=== PATIENT | male | born 1985 | race African-American/Black ===

== ENCOUNTER 2016-10-25 21:44 | Emergency (ER) | payer SELFPAY ==
[~2016-10-25] VITALS: Ht 180.3 cm; Wt 96.7 kg
[~2016-10-25 21:44] MED LIST: 12 HOUR DECONG120 M1 PO; AZITHROMYCIN500 M1 PO; BACTRIM,SEPT1 TABLET PO; DEPAKOTE500 MG PO; IBUPROFEN800 MG PO; KEFLEX500 MG PO; LORATADINE10 M2 PO; NAPROSYN500 MG PO; NORCO 5/3251 TABLET PO; PERCOCET 5/31 TABLET PO; TESSALON PERLE100 MG PO; TRAMADOL HCL50 MG PO; TYLENOL WITH C1 EACH PO; VICODIN 5-3001 EACH PO
[2016-10-25] MEDS ORDERED: PEN-VEE K,VEET500 MG PO (22:13)
[2016-10-25] MEDS ORDERED: NORCO 5/3251 TABLET PO (22:13)
[2016-10-25 22:24] VITALS: BP 136/98
== END 2016-10-25 22:25 | disposition home or self-care (01) ==
LOC: EME 21:44
DX: K04.7 Periapical abscess without sinus (principal); L03.211 Cellulitis of face; K03.81 Cracked tooth; F17.200 Nicotine dependence, unspecified, uncomplicated
CPT/HCPCS: 99281; 99284

== ENCOUNTER 2016-10-27 20:19 | Inpatient (IN) | payer OTHER ==
[~2016-10-27] VITALS: Ht 180.3 cm; Wt 94.9 kg
[~2016-10-27 20:19] MED LIST changes: +PEN-VEE K,VEET500 MG PO
[2016-10-27 21:49] LABS: HEMATOCRIT 40.7 % (38.0-50.0); MCHC 34.4 G/DL (30.0-36.0); MCV 87.3 FL (86-99); MEAN PLAT.VOLUME 10.3 uM^3 (9.0-12.4); PLATELET COUNT 210 K/uL (156-360); RBC DIS.WIDTH-CV 14.2 % (11.8-14.6); RBC DIS.WIDTH-SD 44.8 % (39-53); RED BLOOD COUNT 4.66 M/uL (4.00-5.50); WHITE BLOOD COUNT 18.2 K/uL (4.1-10.2)
[2016-10-27 21:54] LABS: BASOPHIL COUNT 0.1 K/uL (0-0.1); EOSINOPHIL (%) 0.5 % (0-5); EOSINOPHIL COUNT 0.1 K/uL (0-0.3); IMMATURE GRANULOCYTE (%) 0.3 % (0.0-0.7); IMMATURE GRANULOCYTE COUNT 0.5 K/uL; LYMPHOCYTE COUNT 2.2 K/uL (1.0-2.8); MONOCYTE (%) 10.7 % (3-12); MONOCYTE COUNT 1.9 K/uL (0-0.8); NEUTROPHIL COUNT 13.8 K/uL (1.8-6.4)
[2016-10-27 21:57] LABS: CHLORIDE 105 mEq/L (99-109); POTASSIUM 3.7 mEq/L (3.7-5.4); SODIUM 139 mEq/L (136-147)
[2016-10-27 21:59] LABS: GLUCOSE 75 mg/dL (70-99)
[2016-10-27 22:01] LABS: ANION GAP 14 MEQ/L (2-14); TOTAL BILIRUBIN 0.7 mg/dL (0.0-1.0)
[2016-10-27 22:03] LABS: ALKALINE PHOSPHATASE 93 IU/L (3-129); GFR ESTIMATE (CALCULATED) > 59 mL/min/
[2016-10-27 22:04] LABS: UREA NITROGEN (BUN) 8 mg/dL (9-23)
[2016-10-28 03:30] VITALS: BP 130/87
[2016-10-28 03:55] VITALS: BP 130/87
[2016-10-28 04:59] LABS: HEMATOCRIT 38.9 % (38.0-50.0); MCH 29.9 PG (29.0-34.0); MCHC 33.9 G/DL (30.0-36.0); RBC DIS.WIDTH-CV 14.2 % (11.8-14.6); RBC DIS.WIDTH-SD 45.1 % (39-53); RED BLOOD COUNT 4.42 M/uL (4.00-5.50); WHITE BLOOD COUNT 14.4 K/uL (4.1-10.2)
[2016-10-28 06:59] LABS: MEAN PLAT.VOLUME ND uM^3 (9.0-12.4); PLATELET COUNT ND K/uL (156-360)
[2016-10-28 07:01] LABS: HEMATOLOGY COMMENT 1 SMEAR COMPATIBLE; USER ID TLW
[2016-10-28 07:47] VITALS: BP 129/68
[2016-10-28 11:01] VITALS: BP 127/66
[2016-10-28 11:33] LABS: BASOPHIL COUNT 0.1 K/uL (0-0.1); EOSINOPHIL (%) 0.9 % (0-5); EOSINOPHIL COUNT 0.1 K/uL (0-0.3); IMMATURE GRANULOCYTE (%) 0.5 % (0.0-0.7); IMMATURE GRANULOCYTE COUNT 0.7 K/uL; LYMPHOCYTE COUNT 3.1 K/uL (1.0-2.8); MONOCYTE (%) 11.6 % (3-12); MONOCYTE COUNT 1.7 K/uL (0-0.8); NEUTROPHIL (%) 65.3 % (45-76); NEUTROPHIL COUNT 9.4 K/uL (1.8-6.4)
[2016-10-28 15:19] VITALS: BP 126/84
[2016-10-28 19:56] VITALS: BP 125/58
[2016-10-29 00:25] VITALS: BP 115/69
[2016-10-29 07:19] LABS: ANION GAP 10 MEQ/L (2-14); CHLORIDE 103 MEQ/L (99-109); GFR ESTIMATE (CALCULATED) > 59 mL/min/; MAGNESIUM 2.1 mg/dl (1.3-2.7); POTASSIUM 3.8 MEQ/L (3.7-5.4); SAMPLE HEMOLYSIS CHECK 0; SAMPLE ICTERIC CHECK 0; SAMPLE LIPEMIA CHECK 0; SODIUM 139 MEQ/L (136-147); UREA NITROGEN (BUN) 11 mg/dL (9-23)
[2016-10-29 07:20] LABS: GLUCOSE 95 mg/dL (70-99)
[2016-10-29 07:24] LABS: EOSINOPHIL (%) 3.3 % (0-5); EOSINOPHIL COUNT 0.3 K/uL (0-0.3); HEMATOCRIT 38.5 % (38.0-50.0); IMMATURE GRANULOCYTE (%) 0.5 % (0.0-0.7); LYMPHOCYTE COUNT 1.2 K/uL (1.0-2.8); MCH 30.5 PG (29.0-34.0); MCHC 34.8 G/DL (30.0-36.0); MCV 87.7 FL (86-99); MEAN PLAT.VOLUME 10.6 uM^3 (9.0-12.4); MONOCYTE COUNT 0.6 K/uL (0-0.8); NEUTROPHIL (%) 72.3 % (45-76); NEUTROPHIL COUNT 5.4 K/uL (1.8-6.4); PLATELET COUNT 238 K/uL (156-360); RBC DIS.WIDTH-CV 14.2 % (11.8-14.6); RBC DIS.WIDTH-SD 45.4 % (39-53); RED BLOOD COUNT 4.39 M/uL (4.00-5.50)
[2016-10-29 07:25] LABS: WHITE BLOOD COUNT 7.5 K/uL (4.1-10.2)
[2016-10-29 07:48] VITALS: BP 119/71
[2016-10-29 15:08] VITALS: BP 132/72
[2016-10-30 00:52] VITALS: BP 113/77
[2016-10-30 06:25] LABS: HEMATOCRIT 38.9 % (38.0-50.0); MCHC 34.2 G/DL (30.0-36.0); MCV 87.8 FL (86-99); MEAN PLAT.VOLUME 10.6 uM^3 (9.0-12.4); PLATELET COUNT 252 K/uL (156-360); RBC DIS.WIDTH-CV 14.3 % (11.8-14.6); RBC DIS.WIDTH-SD 46.1 % (39-53); RED BLOOD COUNT 4.43 M/uL (4.00-5.50); WHITE BLOOD COUNT 5.5 K/uL (4.1-10.2)
[2016-10-30 06:50] LABS: ANION GAP 9 MEQ/L (2-14); CHLORIDE 104 MEQ/L (99-109); GFR ESTIMATE (CALCULATED) > 59 mL/min/; GLUCOSE 89 mg/dL (70-99); SAMPLE HEMOLYSIS CHECK 0; SAMPLE ICTERIC CHECK 0; SAMPLE LIPEMIA CHECK 0; SODIUM 142 MEQ/L (136-147); UREA NITROGEN (BUN) 15 mg/dL (9-23)
[2016-10-30 08:00] VITALS: BP 129/70
[2016-10-30] MEDS ORDERED: CLINDAMYCIN HC300 MG PO (08:00)
[2016-10-30] MEDS ORDERED: TORADOL10 MG PO (11:57)
== END 2016-10-30 14:30 | disposition home or self-care (01) | DRG 603 ==
LOC: EXP 20:19 → EME 20:19 → 3EAST 10-28 00:44 → 5SOUTH 10-28 00:44 → EDOF 10-28 00:44 → 3EAST 10-28 02:51 → 5SOUTH 10-29 00:10
PROVIDERS: Internal Medicine; Physician Assistant
PROC: 0N9 Head and Facial Bones, Drainage (ICD-10-PCS; principal; 2016-10-28)
DX: L03.211 Cellulitis of face (principal); K04.7 Periapical abscess without sinus; M27.9 Disease of jaws, unspecified; L03.213 Periorbital cellulitis; E66.9 Obesity, unspecified; Z68.33 Body mass index [BMI] 33.0-33.9, adult; F17.210 Nicotine dependence, cigarettes, uncomplicated; K03.81 Cracked tooth
CPT/HCPCS: 70487; 80048; 80053; 83735; 85025; 85027; 99281; 99284; 99285; J1885; J2270; J2405; J7030

== ENCOUNTER 2017-11-20 17:00 | Emergency (ER) | payer OTHER ==
[~2017-11-20] VITALS: Ht 180.3 cm; Wt 104.9 kg
[~2017-11-20 17:00] MED LIST changes: +CLINDAMYCIN HC300 MG PO; +TORADOL10 MG PO
[2017-11-20] MEDS ORDERED: MOTRIN800 MG PO (20:36)
[2017-11-20] MEDS ORDERED: LIDODERM 5% P1 PATCH TD (20:36)
[2017-11-20] MEDS ORDERED: SKELAXIN800 MG PO (20:36)
[2017-11-20 20:59] VITALS: BP 115/84
== END 2017-11-20 21:01 | disposition home or self-care (01) ==
LOC: EME 17:00
DX: S33.5XXA Sprain of ligaments of lumbar spine, initial encounter (principal); S20.229A Contusion of unspecified back wall of thorax, initial encounter; W01.0XXA Fall on same level from slipping, tripping and stumbling without subsequent striking against object, initial encounter; Y93.H1 Activity, digging, shoveling and raking; Y92.008 Other place in unspecified non-institutional (private) residence as the place of occurrence of the external cause
CPT/HCPCS: 72100; 99281; 99284